=== PATIENT | male | born 1950 | race Caucasian/White ===

== ENCOUNTER 2017-07-13 07:42 | Day surgery (SDC) | payer MEDICARE, BC, OTHER ==
[2017-07-13] MEDS ORDERED: Lactated Ringers 1,000 ML IV SCH (08:00)
[2017-07-13] MEDS ORDERED: Sodium Chloride 0.9% 10 ML Syringe FLUSH PRN (08:00)
[2017-07-13] MEDS ORDERED: Propofol 200 MG/20 ML SDV ONE ×2 (09:06→09:15)
[2017-07-13] MEDS ORDERED: Midazolam 1 MG/ML 2 ML SDV ONE ×2 (09:06→09:15)
[2017-07-13] MEDS ORDERED: fentaNYL 100 MCG/2 ML SDV ONE ×2 (09:06→09:15)
--- NOTE | 2017-07-13 09:18 | PCM.PN ---
- General Info Date of Service: 07/13/17 - Review of Systems Systems Review Comment:: 67-year-old male referred for his initial colonoscopy. He was recently discovered to have a positive FIT-test. He denies any recent changes in his bowel pattern. He also denies any family history of colon cancer. He is medically stable to proceed today with no significant recent change in his health status. I have discussed the proposed colonoscopy with the patient. Risks such as but not limited to bleeding and GI injury reviewed. He appears to understand and agrees to proceed. - Patient Data Vitals - Most Recent: Last Vital Signs Temp 98.1 F 07/13/17 08:17 Pulse 83 07/13/17 08:17 Resp 17 07/13/17 08:17 BP 130/66 07/13/17 08:17 Pulse Ox 99 07/13/17 08:17 Weight - Most Recent: 77.292 kg Med Orders - Current: Current Medications Lactated Ringer's (Ringers, Lactated) 1,000 mls @ 125 mls/hr IV ASDIRECTED ANGELA Last Admin: 07/13/17 08:43 Dose: 125 mls/hr Sodium Chloride (Saline Flush) 10 ml FLUSH ASDIRECTED PRN PRN Reason: Keep Vein Open Discontinued Medications Fentanyl (Sublimaze) Confirm Administered Dose 100 mcg .ROUTE .STK-MED ONE Stop: 07/13/17 09:07 Midazolam HCl (Versed 1 Mg/Ml) Confirm Administered Dose 2 mg .ROUTE .STK-MED ONE Stop: 07/13/17 09:07 Propofol (Diprivan 20 Ml) Confirm Administered Dose 200 mg .ROUTE .STK-MED ONE Stop: 07/13/17 09:07 - Problem List Review Problem List Initiated/Reviewed/Updated: Yes - My Orders Last 24 Hours: My Active Orders 07/13/17 08:00 Patient Status [ADT] Routine Peripheral IV Care [RC] . DIRECTED Verify Patient Consent Obtain [RC] ASDIRECTED Lactated Ringers [Ringers, Lactated] 1,000 ml IV ASDIRECTED Sodium Chloride 0.9% [Saline Flush] 10 ml FLUSH ASDIRECTED PRN Peripheral IV Insertion Adult [OM.PC] Routine 07/13/17 09:06 Midazolam [Versed 1 MG/ML] 2 mg .ROUTE .STK-MED ONE - Assessment Assessment:: Hemoccult positive stools - Plan Plan:: Colonoscopy
--- NOTE | 2017-07-13 10:16 | PCM.OPNOTE ---
- General Post-Op/Procedure Note Date of Surgery/Procedure: 07/13/17 Operative Procedure(s): Colonoscopy with polypectomy and biopsy Findings: Firm Ulcerative Cecal mass Multiple colon polyps Pre Op Diagnosis: Guiac + stools Post-Op Diagnosis: Cecal Mass. Colon Polyps Anesthesia Technique: MAC Primary Surgeon: Malik Chiu Pathology: Biopsies of cecal mass Colon polyps Output, Urine Amount: 0 EBL in mLs: 4 Complications: None Condition: Good Free Text/Narrative:: Intake & Output 07/12/17 07/13/17 07/13/17 22:59 06:59 14:59 Intake Total 600 Balance 600
--- NOTE | 2017-07-13 14:25 | OR ---
Date of Procedure: 07/13/2017 PREOPERATIVE DIAGNOSIS: Guaiac-positive stools. POSTOPERATIVE DIAGNOSES: 1. Cecal mass. 2. Multiple colon polyps. OPERATION PERFORMED: Colonoscopy with polypectomy and biopsy. INDICATIONS FOR SURGERY: This 67-year-old male presents for his initial colonoscopy. He was recently noted to have guaiac-positive stools. FINDINGS: The patient has a large ulcerative firm mass in the cecum. The surface is hyperemic and friable, and it is grossly worrisome for a malignancy. Multiple polyps were noted during the exam as well. There is a 5 mm sessile polyp in the rectum, 10 cm from the anal verge. A 6 mm sessile polyp in the sigmoid colon, 15 cm from the anal verge. A pedunculated irregularly shaped 1 cm polyp in the sigmoid colon at the 18 cm level. There is a rounded 1.2 cm polyp in the sigmoid colon, 30 cm from the anal verge and a sessile polyp, 7 mm in size in the mid transverse colon. The remainder of the colon appears normal. PROCEDURE IN DETAIL: The patient was taken to the operating room. He was given intravenous sedation, and with him in the left lateral decubitus position, digital rectal exam was performed showing no rectal masses. The Olympus colonoscope was inserted into the rectum. Retroflexed examination of the rectal canal was performed. The scope was carefully advanced under direct visualization through the entire length of the colon until the cecum is reached. In the cecum, the cecal mass was identified. This did appear to be separate from the appendiceal orifice and the ileocecal valve and was worrisome for malignancy. Multiple biopsies of this mass were taken. The scope was then slowly withdrawn sequentially re-examining the colonic segments. During insertion and withdrawal of the scope, the above-described polyps were identified. These are removed in turn as they are visualized using cautery snare and retrieving the polyps into a polyp trap. All five of the above- described polyps are removed in this manner and retrieved. After the examination had been completed, there was no sign of any complication. The scope was removed, and the patient was taken from the operating room in satisfactory condition. ESTIMATED BLOOD LOSS: 4 mL. COMPLICATIONS: None. PROGNOSIS: Good. ANGEL Chiu MD /[id number]
== END 2017-07-13 11:40 | disposition home or self-care (01) ==
LOC: LL.SDS 07:42
PROVIDERS: ATTEND Surgery
DX: C18.0 Malignant neoplasm of cecum (principal); D12.3 Benign neoplasm of transverse colon; D12.5 Benign neoplasm of sigmoid colon; K62.1 Rectal polyp; Z79.899 Other long term (current) drug therapy
CPT/HCPCS: 00810; 45380; 45385; J2250; J2704; J3010; J7120; 88305; 88341; 88342

== ENCOUNTER 2019-02-18 15:39 | Emergency (ER) | payer MEDICARE, BC ==
[2019-02-18] MEDS ORDERED: Ticagrelor 90 MG Tab PO ONE (15:55)
[2019-02-18] MEDS ORDERED: Aspirin 81 MG Tab.Chew CHEW ONE (15:55)
[2019-02-18] MEDS ORDERED: Famotidine 20 MG/2 ML SDV IVPUSH ONE (15:55)
[2019-02-18] MEDS ORDERED: Sodium Chloride 0.9% 10 ML Syringe FLUSH PRN (15:55)
--- NOTE | 2019-02-18 15:55 | EDM.PDOC ---
ED HPI GENERAL MEDICAL PROBLEM - General Chief Complaint: Chest Pain Stated Complaint: chest pressure Time Seen by Provider: 02/18/19 15:55 Source of Information: Reports: Patient, Old Records ([facility] chart/EMR including records from both [place] in [place]), Other ([place] EMR) History Limitations: Reports: No Limitations - History of Present Illness INITIAL COMMENTS - FREE TEXT/NARRATIVE: The patient drove himself to the emergency room via private automobile for evaluation of a one month history of chronic constant 1-2/10 superior left chest pressure with initial brief evaluation by his regular provider, Remigio Corbett PA-C, at the [facility] in [place], who sent the patient to our emergency room for further treatment and evaluation. Note EKG was taken in that clinic, however no other medications, treatment, etc.. He has had extensive heart workup in the past as below with no previous history of NV, cardiac procedures, etc. The patient denies any other chest pain/radiation of discomfort , heart flutter, dizziness, orthostasis, orthopnea, diaphoresis, paresthesias, recent decreased exercise tolerance, or any other anginal-type symptoms. No recent history of abdominal pain, heartburn, nausea, diarrhea, melena, gross hematochezia, or any food intolerance, including fatty foods, etc., with normal bowel movement earlier today. Denies any gross hematuria, colic, or other UTI symptoms. The patient also denies any recent fever, cough, wheezing, dyspnea, etc.. No history of recent headaches, visual changes, diplopia, change in mental status, or other change in neurological status. Onset: Unknown/Unsure Duration: Week(s): (One month as above), Constant. No: Getting Worse, Intermittent Location: Reports: Chest. Denies: Head, Face, Neck, Abdomen, Back, Upper Extremity, Left, Upper Extremity, Right, Radiates to Quality: Reports: Pressure, Same as Previous Episode. Denies: Ache, Burning, Dull, Sharp, Stabbing, Throbbing Severity: Mild Improves with: Reports: None Worsens with: Reports: None Context: Reports: Other (As above). Denies: Sick Contact, Trauma Associated Symptoms: Denies: Confusion, Chest Pain, Cough, Diaphoresis, Fever/ Chills, Headaches, Loss of Appetite, Malaise, Nausea/Vomiting, Shortness of Breath, Syncope, Weakness Treatments ELECTROTHERAPIST: Reports: Other (see below) (None) Chest Pain Pain Score (Numeric/FACES): 2 - Related Data Allergies Allergy/AdvReac Type Severity Reaction Status Date / Time pollen extracts Allergy Other Verified 07/26/18 09:22 Home Meds: Home Meds Finasteride 5 mg PO DAILY 07/12/17 [History] Multivitamins,Therapeutic [Thera] 1 each PO DAILY 07/12/17 [History] Ferrous Sulfate 325 mg PO Q2D 07/25/18 [History] Cetirizine [ZyrTEC] 10 mg PO DAILY PRN 02/18/19 [History] Loratadine [Claritin] 10 mg PO DAILY PRN 02/18/19 [History] Omeprazole 20 mg PO ACBREAKFAST #30 cap.sr 02/18/19 [Rx] Past Medical History HEENT History: Reports: Allergic Rhinitis, Epistaxis, Impaired Vision, Sinusitis , Other (See Below). Denies: Cataract, Glaucoma, Hard of Hearing, Macular Degeneration, Otitis Media, Retinal Detachment Other HEENT History: Seasonal allergies. Patient does wear glasses and does have floaters. Recurrent epistaxis in childhood no longer problematic. Nasal septum deviation. Cardiovascular History: Reports: None, Cardiomyopathy, Other (See Below). Denies: Afib, Aneurysm, Arrhythmia, Blood Clots/VTE/DVT, CAD, Heart Failure, Heart Murmur, High Cholesterol, Hypertension, NV, PVD, Syncope Other Cardiovascular History: He does not know his cholesterol status.. Mild grade 1 diastolic dysfunction by echocardiogram since August 2017 as below with decreased ejection fraction of 4550 percent, however improved function to 54% by Cardiolite stress test in November 2017 as below. Benign diffuse valvular disease by echocardiogram with no murmurs. Respiratory History: Reports: Bronchitis, Recurrent, COPD, Intubation, Previous , Pneumonia, Recurrent, Other (See Below). Denies: Asthma, Intubation, Difficult, PE, Pneumothorax, Sleep Apnea Other Respiratory History: Possible Pulmonary metastasis from colon cancer as below with 3 mm left lower lobe nodule by CT scan on 12/08/17, however no change with subsequent follow-up CT scan in October 2018 as below with scattered tiny punctate pulmonary nodules and no radiation or chemotherapy to this point. COPD with no current medical therapy or treatment. Gastrointestinal History: Reports: Colon Polyp, GERD, Other (See Below). Denies : Celiac Disease, Cholelithiasis, Chronic Constipation, Chronic Diarrhea, Gastritis, GI Bleed, Hepatitis, Inflammatory Bowel Disease, Irritable Bowel Syndrome, Jaundice, Pancreatitis, PUD Other Gastrointestinal History: History of multiple colonic polyps including cecal invasive moderately differentiated adenocarcinoma in 2017 requiring surgery as below with additional multiple sigmoid and rectal polyps including hyperplastic colonic polyps, serrated adenocarcinoma, and tubular adenomas with additional tubular adenoma of the transverse colon and subsequent hyperplastic colonic polyp in the transverse colon in 2018. Benign hepatic cysts and [address] scan. Genitourinary History: Reports: BPH, STD, Other (See Below). 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 Benign left renal cyst by CT scan in 2017. Musculoskeletal History: Reports: Arthritis, Back Pain, Chronic, Neck Pain, Chronic, Osteoarthritis. Denies: Amputation, Fracture, Gout, RA, SLE Neurological History: Reports: None. Denies: Cerebral Aneurysms, Concussion, CVA, Headaches, Chronic, Head Trauma, Migraines, MS, Neuropathy, Peripheral, Parkinson's, Seizure, TIA Psychiatric History: Reports: Addiction, Anxiety, Depression, Suicidal Ideation , Other (See Below). Denies: Abuse, Victim of, ADD, ADHD, Alzheimers Disease, Dementia, Hallucinations, Psych Hospitalization(s), PTSD, Suicide Attempt Other Psychiatric History: Alcohol addiction in the 1970s and 1980s with no use since 02/18/91 with no inpatient treatment required. He did have DTs with his alcohol abuse. Endocrine/Metabolic History: Reports: None, Vitamin D Deficiency. Denies: Diabetes, Type I, Diabetes, Type II, Hypothyroidism, IDDM Hematologic History: Reports: Anemia, Iron Deficiency. Denies: B12 Deficiency, Blood Transfusion(s) Immunologic History: Reports: None. Denies: AIDS, HIV, SLE Oncologic (Cancer) History: Reports: Colon, Lung, Metastatic, Other (See Below) . Denies: Basal Cell Carcinoma, Hodgkin's Lymphoma, Leukemia, Liver, Lymphoma, Malignant Melanoma, Non-Hodgkin's Lymphoma, Prostate, Squamous Cell Carcinoma Other Oncologic History: Pulmonary metastases from colon cancer in 2017 as above Dermatologic History: Reports: None. Denies: Eczema, Psoriasis - Infectious Disease History Infectious Disease History: Reports: Chicken Pox, Measles, Mumps. Denies: C- Difficile, Meningitis, Mononucleosis, MRSA, Pertussis (Whooping Cough), Rheumatic Fever, Rubella, Scarlet Fever, Shingles, TB, VRE - Past Surgical History Head Surgeries/Procedures: Reports: None HEENT Surgical History: Reports: Adenoidectomy, Oral Surgery, Tonsillectomy, Other (See Below). Denies: Cataract Surgery, Eye Surgery, Laser Surgery, LASIK , Myringotomy w Tube(s), Naso-Sinus Surgery Other HEENT Surgeries/Procedures: Multiple dental extractions. Tonsillectomy and adenoidectomy in childhood. Cardiovascular Surgical History: Reports: None. Denies: Varicose Respiratory Surgical History: Reports: None. Denies: Thoracentesis GI Surgical History: Reports: Appendectomy, Colon, Colonoscopy, Colostomy, Polypectomy, Other (See Below). Denies: Cholecystectomy, Hernia, Abdominal, Hernia, Inguinal, Hernia Repair/Other Other GI Surgeries/Procedures: Right Hemicolectomy with concomitant appendectomy on 08/15/17 secondary to cecal colon cancer as above. Colonoscopy on 07/13/17 and 07/26/18 with polypectomies as above. Male Surgical History: Reports: Circumcision, Other (See Below). Denies: TURP-Transurethral Resection of Prostate, Vasectomy Other Male Surgeries/Procedures: Circumcision as an infant. Endocrine Surgical History: Reports: None. Denies: Thyroid Biopsy Neurological Surgical History: Reports: None. Denies: C-Spine, Discectomy, Laminectomy, Lumbar Spine, Sacral Spine, Spinal Fusion, Thoracic Spine, Vertebroplasty Musculoskeletal Surgical History: Reports: None. Denies: Arthroscopic Procedure , Carpal Tunnel, Ganglion Cyst, Joint Replacement, ORIF, Shoulder Surgery Oncologic Surgical History: Reports: Other (See Below) Other Oncologic Surgeries/Procedures: Right hemicolectomy as above. Dermatological Surgical History: Reports: Other (See Below) Other Dermatological Surgeries/Procedures: Excision of benign cyst from his left back region the . - Past Imaging History Past Imaging History: Reports: Cardiac Echo (09/04/17 and 10/04/18 with findings as above.), CAT Scan (CT scan of the chest, abdomen, and pelvis with IV contrast on 10/24/18 CT scan of the abdomen and pelvis on 08/02/17. CT of the chest contrast on 12/08/17.), PFT (12/07/17 including diffusion studies), Stress Testing (Negative Cardiolite stress test on 12/04/17 with ejection fraction of 54 %.) Social & Family History - Family History HEENT: Reports: None. Denies: Glaucoma, Macular Degeneration, Retinal Detachment Cardiac: Reports: Syncope, Other (See Below). Denies: Afib, Aneurysm, Arrhythmia, Blood Clots/VTE/DVT, CAD, Heart Failure, Heart Murmur, High Cholesterol, Hypertension, NV, Pacemaker, PVD/COD Other Cardiac Family History: Brother with recurrent syncope secondary to previous head concussion. Brother with congenital intestinal malformation fatal in the first week of life. Respiratory: Reports: Asthma. Denies: COPD, PE, Pneumothorax, Sleep Apnea, Other (See Below) Other Respiratory Family Hisory: Brother with asthma. GI: Reports: Cholelithiasis, Other (See Below). Denies: Celiac Disease, Colon Polyps, GERD, GI bleed, Hepatitis, Irritable Bowel Syndrome, Pancreatitis, PUD Other GI Family History: Mother with cholelithiasis. : Reports: Renal Disease/Insufficiency, Other (See Below). Denies: Renal Calculus Other Family History: Brother with unknown type of kidney problems. OBGYN: Reports: None. Denies: Endometriosis, Recurrent Spontaneous Musculoskeletal: Reports: Arthritis, Osteoarthritis, Other (See Below). Denies : Gout, RA, SLE Other Musculoskeletal Family History: Sister with osteoarthritis. Neurological: Reports: CVA, MS, Other (See Below). Denies: Alzheimers Disease, Cerebral Aneurysms, Dementia, Migraines, Parkinson's, Seizure, TIA Other Neurological Family History: Mother with unknown type cerebral mass with secondary CVA and Alzheimer's disease. Sister with MS initially in her 20s. Psychiatric: Reports: Anxiety, Depression, Suicide Attempt, Other (See Below). Denies: Abuse, Victim of, ADD, ADHD Other Psychiatric Family History: Father with successful suicide at age 49 with history of alcohol abuse. Brothers 2 with alcohol abuse. Endocrine/Metabolic: Reports: None. Denies: Diabetes, Type I, Diabetes, type II , Diabetes Mellitus, Type 3c, Hypothyroidism, IDDM Hematologic: Reports: None. Denies: Anemia, SLE Immunologic: Reports: None. Denies: AIDS, HIV, SLE Dermatologic: Reports: None. Denies: Eczema, Psoriasis Oncologic: Reports: None. Denies: Colon, Hodgkin's Lymphoma, Leukemia, Lung, Lymphoma, Metastatic, Non-Hodgkin's Lymphoma, Prostate, Skin - Tobacco Use Smoking Status *Q: Former Smoker Tobacco Use Within Last Twelve Months: No Packs/Tins Daily Comment: Occasional cigarette used in the and during time of alcohol abuse. Used Tobacco, but Quit: No Smoking Cessation Information Provided To Patient: No Second Hand Smoke Exposure: No Second Hand Smoke Education Provided: No - Caffeine Use Caffeine Use: Reports: Coffee (1 Cup per day). Denies: Energy Drinks, Soda, Tea - Alcohol Use Alcohol Use History: Yes Days Per Week of Alcohol Use: 0 Number of Drinks Per Day: 0 Number of Drinks Per Day Comment: Alcohol abuse history as above. Total Drinks Per Week: 0 Alcohol Use in Last Twelve Months: No - Recreational Drug Use Recreational Drug Use: Yes Drug Use in Last 12 Months: No Recreational Drug Type: Reports: LSD (Acid) (In the and .), Marijuana /Hashish ( and ). Denies: Amphetamines (Speed), Heroin, Inhalants ( Glues, Solvents, Aerosols), Methamphetamine, Morphine, Oxycodone - Living Situation & Occupation Living situation: Reports: (1994, no children), with Family () Occupation: Employed ([employer] in [facility]) ED ROS GENERAL - Review of Systems Review Of Systems: ROS reveals no pertinent complaints other than HPI. ED EXAM, GENERAL - Physical Exam Exam: See Below Exam Limited By: No Limitations General Appearance: Alert, WD/WN, No Apparent Distress, Anxious (Mild to moderate) Eye Exam: Right Eye: PERRL, Bilateral Eye: Normal Inspection (No nystagmus, patient does have his glasses.) Ears: Normal External Exam, Normal Canal, Hearing Grossly Normal, Normal TMs Nose: Normal Mucosa, No Blood, Nasal Deformity (Moderate nasal septum deviation to the right) Throat/Mouth: Normal Inspection, Normal Lips, Normal Teeth, Normal Gums, Normal Oropharynx, Normal Voice, No Airway Compromise. No: Dysphagia, Perioral Cyanosis Head: Atraumatic, Normocephalic. No: Facial Swelling, Facial Tenderness, Sinus Tenderness Neck: Normal Inspection, Supple, Non-Tender, Full Range of Motion. No: Carotid Bruit, Lymphadenopathy (L), Lymphadenopathy (R), Thyromegaly Respiratory/Chest: No Respiratory Distress, Lungs Clear, Normal Breath Sounds, No Accessory Muscle Use, Chest Non-Tender. No: Pleural Rub, Retractions Cardiovascular: Normal Peripheral Pulses, Regular Rate, Rhythm, No Edema, No Gallop, No JVD, No Murmur, No Rub. No: Systolic Murmur, Gallop/S4, Friction Rub Peripheral Pulses: 2+: Radial (L), Radial (R), Dorsalis Pedis (L), Dorsalis Pedis (R) GI/Abdominal: Normal Bowel Sounds, Soft, Non-Tender, No Organomegaly, No Distention, No Abnormal Bruit, No Mass. No: Guarding (Male) Exam: Deferred Rectal (Males) Exam: Deferred Back Exam: Normal Inspection. No: CVA Tenderness (L), CVA Tenderness (R), Muscle Spasm Extremities: Normal Inspection, Normal Range of Motion, Non-Tender, No Pedal Edema, Normal Capillary Refill. No: Boyd's Sign Neurological: Alert, Oriented, CN II-XII Intact, Normal Cognition, Normal Gait, Normal Reflexes (Negative Babinski's), No Motor/Sensory Deficits Psychiatric: Anxious (Mild to moderate), Depressed Mood (Borderline with good eye contact) Skin Exam: Warm, Dry, Intact, Normal Color, No Rash. No: Diaphoretic, Wound/ Incision Lymphatic: No Adenopathy EKG INTERPRETATION EKG Date: 02/18/19 Time: 16:02 Rhythm: NSR Rate (Beats/Min): 61 [place]: LAD-Left [place] Deviation (Extended left cardiac axis) P-Wave: Enlarged (Moderate diffuse biphasic P waves with poor R-wave progression in the anterior leads) QRS: Wide (0.13 seconds representing repolarization changes) ST-T: Normal QT: Normal GA/PQ Interval: 0.16 seconds Comparison: No Change (Previous EKG at the [facility] in [place] earlier this afternoon.) EKG Interpretation Comments: 1. No acute ischemic changes 2. Atrial enlargement-left 3. Repolarization changes Course - Vital Signs Last Recorded V/S: Last Vital Signs Temp 36.0 C 02/18/19 16:00 Pulse 63 02/18/19 16:44 Resp 20 02/18/19 16:44 BP 132/82 02/18/19 16:44 Pulse Ox 98 02/18/19 16:44 Vital Signs - 24 hr 02/18/19 02/18/19 02/18/19 15:52 15:55 16:00 Temperature [ 36.4 C 36.0 C Temporal] Pulse, 64 61 Peripheral [ Left Pulse Oximetry] Respiratory 20 20 Rate Blood Pressure 122/69 125/73 [Left Upper Arm ] O2 Sat by Pulse 98 98 Oximetry O2 Sat by Pulse 98 Oximetry [Room Air] 02/18/19 02/18/19 02/18/19 16:20 16:44 17:16 Temperature [ Temporal] Pulse, 64 63 59 L Peripheral [ Left Pulse Oximetry] Respiratory 20 20 18 Rate Blood Pressure 127/62 132/82 136/68 [Left Upper Arm ] O2 Sat by Pulse 98 98 98 Oximetry O2 Sat by Pulse Oximetry [Room Air] - Orders/Labs/Meds Orders: Active Orders 24 hr Category Date Time Status Cardiac Monitoring [RC] . DIRECTED Care 02/18/19 15:55 Active EKG Documentation Completion [RC] ASDIRECTED Care 02/18/19 15:55 Active Oxygen Therapy, ED [RC] PRN Care 02/18/19 15:55 Active Peripheral IV Care [RC] . DIRECTED Care 02/18/19 15:55 Active Pulse Oximetry [RC] CONTINUOUS Care 02/18/19 15:55 Active Up With Assistance [RC] PFP Care 02/18/19 15:55 Active Vital Signs [RC] PFP Care 02/18/19 15:55 Active Nothing per Oral Now Diet [DIET] Diet 02/18/19 Breakfast Active Chest 1V Frontal [CR] Stat Exams 02/18/19 15:55 Ordered Sodium Chloride 0.9% [Saline Flush] Med 02/18/19 15:55 Active 10 ml FLUSH ASDIRECTED PRN Obtain Past Medical Record [OM.PC] Urgent Oth 02/18/19 15:55 Active Peripheral IV Insertion Adult [OM.PC] Stat Oth 02/18/19 15:55 Ordered Resuscitation Status Stat Resus Stat 02/18/19 15:55 Ordered Medication Orders Sodium Chloride (Saline Flush) 10 ml FLUSH ASDIRECTED PRN PRN Reason: Keep Vein Open Labs: Laboratory Tests 02/18/19 02/18/1902/18/19 Range/Units 16:00 16:00 16:00 WBC 6.7 (4.0-10.2) K/uL RBC 4.20 L (4.33-5.41) M/uL Hgb 15.1 (13.1-16.8) g/dL Hct 41.9 (39.0-49.0) % MCV 99.8 H (84.0-98.0) fL MCH 36.0 H (28.2-33.3) pg MCHC 36.0 (31.7-36.0) g/dL RDW 12.5 (11.2-14.1) % Plt Count 179 (150-350) K/uL Neut % (Auto) 56.0 (45.0-80.0) % Lymph % (Auto) 32.6 (10.0-50.0) % [place] % (Auto) 8.6 (2.0-14.0) % Eos % (Auto) 2.3 (0.0-5.0) % Baso % (Auto) 0.5 (0.0-2.0) % Neut # (Auto) 3.73 (1.40-7.00) K/uL Lymph # (Auto) 2.17 (0.50-3.50) K/uL [place] # (Auto) 0.57 (0.00-1.00) K/uL Eos # (Auto) 0.15 (0.00-0.50) K/uL Baso # (Auto) 0.03 (0.00-0.20) K/uL PT 10.7 (9.5-12.0) SEC INR 1.0 APTT 28.2 (21.0-31.3) SEC D-Dimer, Quantitative < 100 (0-400) ng/mL Sodium (136-145) mmol/L Potassium (3.5-5.1) mmol/L Chloride (98-107) mmol/L Carbon Dioxide (21.0-32.0) mmol/L BUN (7-18) mg/dL Creatinine (0.51-1.17) mg/dL Est Cr Clr Drug Dosing mL/min Estimated GFR (MDRD) mL/min Glucose (74-106) mg/dL Lactic Acid (0.4-2.0) mmol/L Uric Acid (2.6-7.2) mg/dL Calcium (8.5-10.1) mg/dL Magnesium (1.8-2.4) mg/dL Total Bilirubin (0.2-1.0) mg/dL AST (15-37) U/L ALT (12-78) U/L Alkaline Phosphatase (46-116) IU/L Creatine Kinase (26-308) U/L Creatine Kinase Index (0.0-2.5) % CK-MB (CK-2) (0.00-3.60) ng/mL Troponin I (0.000-0.056) ng/mL NT-Pro-B Natriuret Pep (0-125) pg/mL Total Protein (6.4-8.2) g/dL Albumin (3.4-5.0) g/dL TSH, Ultra Sensitive (0.358-3.740) mIU/mL 02/18/19 02/18/19 Range/Units 16:00 16:00 WBC (4.0-10.2) K/uL RBC (4.33-5.41) M/uL Hgb (13.1-16.8) g/dL Hct (39.0-49.0) % MCV (84.0-98.0) fL MCH (28.2-33.3) pg MCHC (31.7-36.0) g/dL RDW (11.2-14.1) % Plt Count (150-350) K/uL Neut % (Auto) (45.0-80.0) % Lymph % (Auto) (10.0-50.0) % [place] % (Auto) (2.0-14.0) % Eos % (Auto) (0.0-5.0) % Baso % (Auto) (0.0-2.0) % Neut # (Auto) (1.40-7.00) K/uL Lymph # (Auto) (0.50-3.50) K/uL [place] # (Auto) (0.00-1.00) K/uL Eos # (Auto) (0.00-0.50) K/uL Baso # (Auto) (0.00-0.20) K/uL PT (9.5-12.0) SEC INR APTT (21.0-31.3) SEC D-Dimer, Quantitative (0-400) ng/mL Sodium 141 (136-145) mmol/L Potassium 3.8 (3.5-5.1) mmol/L Chloride 104 (98-107) mmol/L Carbon Dioxide 28.3 (21.0-32.0) mmol/L BUN 15 (7-18) mg/dL Creatinine 0.75 (0.51-1.17) mg/dL Est Cr Clr Drug Dosing 101.79 mL/min Estimated GFR (MDRD) > 60 mL/min Glucose 103 (74-106) mg/dL Lactic Acid 0.5 (0.4-2.0) mmol/L Uric Acid 3.9 (2.6-7.2) mg/dL Calcium 8.7 (8.5-10.1) mg/dL Magnesium 1.8 (1.8-2.4) mg/dL Total Bilirubin 0.6 (0.2-1.0) mg/dL AST 18 (15-37) U/L ALT 28 (12-78) U/L Alkaline Phosphatase 63 (46-116) IU/L Creatine Kinase 55 (26-308) U/L Creatine Kinase Index 1.6 (0.0-2.5) % CK-MB (CK-2) 0.90 (0.00-3.60) ng/mL Troponin I 0.000 (0.000-0.056) ng/mL NT-Pro-B Natriuret Pep 45 (0-125) pg/mL Total Protein 7.1 (6.4-8.2) g/dL Albumin 3.5 (3.4-5.0) g/dL TSH, Ultra Sensitive 3.753 H (0.358-3.740) mIU/mL Meds: Medications Generic Name Dose Route Start Last Admin Trade Name Freq PRN Reason Stop Dose Admin Sodium Chloride 10 ml 02/18/19 15:55 Saline Flush FLUSH ASDIRECTED PRN Keep Vein Open Discontinued Medications Generic Name Dose Route Start Last Admin Trade Name Freq PRN Reason Stop Dose Admin Aspirin 324 mg 02/18/19 15:55 02/18/19 16:08 Aspirin CHEW 02/18/19 15:56 324 mg ONETIME ONE Administration Famotidine 40 mg 07/15/19 15:55 02/18/19 16:07 Pepcid IVPUSH 02/18/19 15:56 40 mg ONETIME ONE Administration Ticagrelor 180 mg 02/18/19 15:55 02/18/19 16:09 Brilinta PO 02/18/19 15:56 180 mg ONETIME ONE Administration - Radiology Interpretation Free Text/Narrative:: Heart monitor showed normal sinus rhythm in the 60s with very occasional brief sinus bradycardia in the high 50s with no other ectopy or arrhythmia. Chest X-ray, portable, shows moderate COPD changes with no cardiomegaly, CHF, pulmonary infiltrates, pneumothorax, etc. Departure - Departure Time of Disposition: 17:40 Disposition: Home, Self-Care 01 Clinical Impression: Peptic reflux disease, Macrocytosis, Mixed anxiety depressive disorder, Hypothyroidism (acquired) Chest pain Qualifiers: Chest pain type: other chest pain Qualified Code(s): R07.89 - Other chest pain ; R07.8 - Other chest pain Osteoarthritis Qualifiers: Osteoarthritis location: multiple joints Osteoarthritis type: primary Qualified Code(s): M15.0 - Primary generalized (osteo)arthritis Prescriptions: Omeprazole 20 mg PO ACBREAKFAST #30 cap.sr Instructions: Heartburn, [id number], Nonspecific Chest Pain, [id number] Referrals: Remigio Corbett PA [Primary Care Provider] - Forms: ED Department Discharge, ED Return to Work/School Form Additional Instructions: 1. Followup with your regular provider in 10-14 days as directed for reevaluation and recommended vitamin B 12 level, folic acid level, TIBC panel, and ferritin level. Bring these discharge instructions with you to that visit. 2. Cardiolite stress test in this facility with Dr. Ackerman on 02/21 with a hospital call you with exact time and instructions prior to that date 3. 50% maximum exercise restriction until your heart status has been determined and you have been released by your regular provider 4. Work excuse- See Form 5. BenGay or equivalent, heating pad, and/or ice packs as directed. 6. Immediately after this visit verify that your cellular telephone's voicemail has been activated and is empty. Also verify that your home telephone 's answering machine is operating properly and has space to receive messages. Note that it is sometimes necessary for us to be able to contact you at a later date to discuss your medical care. 7. Please remember that we are ALWAYS here for you and want to answer any questions you may have. Feel free to call the hospital any time and we call you back KATIE. 8. Recommend repeating TSH in 4 weeks 9. Discuss Cardiolite stress test results with your regular provider at 10-14 day follow-up visit as above. - Problem List & Annotations (1) Chest pain SNOMED Code(s): 20378006 Code(s): R07.9 - CHEST PAIN, UNSPECIFIED Status: Acute Priority: High Current Visit: Yes Annotation/Comment:: Chest pain protocol initiated upon patient's arrival to the emergency room. Note symptoms have been present for more than one month with no change in symptoms to this point. No indication for placement in observation status for rule out NV, however patient was placed on activity restrictions until his cardiac status can be determined. Work excuse provided with activity restrictions discussed. Various therapeutic options were discussed with his Cardiolite stress test to be repeated with Dr. Ackerman in this facility on 02/21 with results to be provided to his regular provider, Remigio Corbett PA-C, at the [facility], who will follow-up closely with the patient as per discharge instructions. Further cardiology referral and/or workup depending on his clinical course. Note that patient did have a negative Cardiolite stress test on 12/04/17 with recent repeat echocardiogram on 10/04/18 with results as above. Consider possible anxiety component and/or GI etiology as below. Qualifiers: Chest pain type: other chest pain Qualified Code(s): R07.89 - Other chest pain; R07.8 - Other chest pain (2) Peptic reflux disease SNOMED Code(s): 949064154 Code(s): K21.9 - GASTRO-ESOPHAGEAL REFLUX DISEASE WITHOUT ESOPHAGITIS Status: Chronic Priority: Medium Current Visit: Yes Annotation/Comment:: Stable by history, however possible GI component to his above symptoms. Initiate OTC omeprazole on a trial basis with close follow-up by his regular provider as per discharge instructions. He may benefit from an EGD once his cardiac status has been determined depending on his clinical course. Note history of colon cancer as above with recent repeat colonoscopy on 07/26/18 with repeat study recommended in 3 years by patient history. (3) Mixed anxiety depressive disorder SNOMED Code(s): 961122482 Code(s): F41.8 - OTHER SPECIFIED ANXIETY DISORDERS Status: Chronic Priority: Medium Current Visit: Yes Annotation/Comment:: He admits to increased current stressors secondary to financial issues, etc. Possible anxiety component of patient's symptoms to current chest pain. Patient may benefit from medical therapy and/or counseling depending on his clinical course. Note distant history of alcohol abuse, suicidal ideation, and positive family history of successful suicide in his father as above. Patient denies any current suicidal ideation, etc. at this time, however. (4) Hypothyroidism (acquired) SNOMED Code(s): 559863034 Code(s): E03.9 - HYPOTHYROIDISM, UNSPECIFIED Status: Acute Priority: Medium Current Visit: Yes Onset Date: 02/18/19 Annotation/Comment:: Mild TSH elevation with no thyroid type symptoms. No medications for now, however TSH should be repeated in 4 weeks as per discharge instructions. (5) Macrocytosis SNOMED Code(s): 972410268 Code(s): D75.89 - OTHER SPECIFIED DISEASES OF BLOOD AND BLOOD-FORMING ORGANS Status: Acute Priority: Medium Current Visit: Yes Onset Date: 02/18/19 Annotation/Comment:: Note previous history of iron deficiency anemia, however the patient has been somewhat noncompliant with his iron supplementation. Medication compliance strongly encouraged. Note previous history of distant alcohol abuse. Further workup for his macrocytosis at follow- up as per discharge instructions. (6) Osteoarthritis SNOMED Code(s): 425482642 Code(s): M19.90 - UNSPECIFIED OSTEOARTHRITIS, UNSPECIFIED SITE Status: Chronic Priority: Medium Current Visit: Yes Annotation/Comment:: Stable by history Qualifiers: Osteoarthritis location: multiple joints Osteoarthritis type: primary Qualified Code(s): M15.0 - Primary generalized (osteo)arthritis - Problem List Review Problem List Initiated/Reviewed/Updated: Yes - My Orders Last 24 Hours: My Active Orders 02/18/19 15:55 Cardiac Monitoring [RC] . DIRECTED EKG Documentation Completion [RC] ASDIRECTED Oxygen Therapy, ED [RC] PRN Peripheral IV Care [RC] . DIRECTED Pulse Oximetry [RC] CONTINUOUS Up With Assistance [RC] PFP Vital Signs [RC] PFP Chest 1V Frontal [CR] Stat Sodium Chloride 0.9% [Saline Flush] 10 ml FLUSH ASDIRECTED PRN Obtain Past Medical Record [OM.PC] Urgent Peripheral IV Insertion Adult [OM.PC] Stat Resuscitation Status Stat 02/18/19 Breakfast Nothing per Oral Now Diet [DIET] - Assessment/Plan Last 24 Hours: My Active Orders 02/18/19 15:55 Cardiac Monitoring [RC] . DIRECTED EKG Documentation Completion [RC] ASDIRECTED Oxygen Therapy, ED [RC] PRN Peripheral IV Care [RC] . DIRECTED Pulse Oximetry [RC] CONTINUOUS Up With Assistance [RC] PFP Vital Signs [RC] PFP Chest 1V Frontal [CR] Stat Sodium Chloride 0.9% [Saline Flush] 10 ml FLUSH ASDIRECTED PRN Obtain Past Medical Record [OM.PC] Urgent Peripheral IV Insertion Adult [OM.PC] Stat Resuscitation Status Stat 02/18/19 Breakfast Nothing per Oral Now Diet [DIET] Assessment:: As above Plan: As above. Extensive precautions were given to the patient, who is in agreement with the treatment plan. See Patient Instructions for further treatment and plan.
[2019-02-18 16:30] LABS: CHLORIDE,CL 104 mmol/L (98-107); SODIUM,NA 141 mmol/L (136-145)
== END 2019-02-18 17:40 | disposition home or self-care (01) ==
LOC: LL.ED 15:39
DX: R07.89 Other chest pain (principal); K21.9 Gastro-esophageal reflux disease without esophagitis; F41.8 Other specified anxiety disorders; E03.9 Hypothyroidism, unspecified; D75.89 Other specified diseases of blood and blood-forming organs; Z87.891 Personal history of nicotine dependence; Z79.899 Other long term (current) drug therapy; Z91.09 Other allergy status, other than to drugs and biological substances
CPT/HCPCS: 36415; 71045; 80053; 82550; 82553; 83605; 83735; 83880; 84443; 84484; 84550; 85025; 85379; 85610; 85730; 93005; 96374; 99285; A9270; J3490; 93010; 99284

== ENCOUNTER 2021-07-08 10:37 | Day surgery (SDC) | payer MEDICARE, BC ==
[~2021-07-08 10:37] MED LIST: Midazolam 1 MG/ML 2 ML SDV ONE; Propofol 200 MG/20 ML SDV ONE
[2021-07-08] MEDS ORDERED: Lactated Ringers 1,000 ML IV SCH (10:45)
[2021-07-08] MEDS ORDERED: Sodium Chloride 0.9% 10 ML Syringe FLUSH PRN (10:45)
--- NOTE | 2021-07-08 11:52 | PCM.PN ---
- General Info Date of Service: 07/08/21 - Review of Systems Systems Review Comment:: 71-year-old male here for colonoscopy. He has a history of prior right hemicolectomy for carcinoma and also has a known history of colon polyps. He is medically stable to proceed today. His recent history and physical is reviewed and no significant changes are noted. He denies any recent change in bowel pattern. I have discussed the proposed colonoscopy with the patient. He agrees to proceed accepting risks. - Patient Data Vitals - Most Recent: Last Vital Signs Temp 97.6 F 07/08/21 11:00 Pulse 91 07/08/21 11:00 Resp 18 07/08/21 11:00 BP 136/96 H 07/08/21 11:00 Pulse Ox 97 07/08/21 11:00 Weight - Most Recent: 80.739 kg Med Orders - Current: Current Medications Lactated Ringer's (Ringers, Lactated) 1,000 mls @ 125 mls/hr IV ASDIRECTED ANGELA Last Admin: 07/08/21 11:17 Dose: 125 mls/hr Documented by: Sodium Chloride (Sodium Chloride 0.9% 10 Ml Syringe) 10 ml FLUSH ASDIRECTED PRN PRN Reason: Keep Vein Open Discontinued Medications Midazolam HCl (Midazolam 1 Mg/Ml 2 Ml Sdv) Confirm Administered Dose 2 mg .ROUTE .STK-MED ONE Stop: 07/08/21 08:33 Propofol (Propofol 200 Mg/20 Ml Sdv) Confirm Administered Dose 400 mg .ROUTE .STK-MED ONE Stop: 07/08/21 08:34 Sepsis Event Note - Focused Exam Vital Signs: Vital Signs Temp Pulse Resp BP Pulse Ox 07/08/21 11:00 97.6 F 91 18 136/96 H 97 - Problem List Review Problem List Initiated/Reviewed/Updated: Yes - My Orders Last 24 Hours: My Active Orders 07/08/21 10:45 Patient Status [ADT] Routine Peripheral IV Care [RC] . DIRECTED Verify Patient Consent Obtain [RC] ASDIRECTED Lactated Ringers [Ringers, Lactated] 1,000 ml IV ASDIRECTED Sodium Chloride 0.9% [Saline Flush] 10 ml FLUSH ASDIRECTED PRN Peripheral IV Insertion Adult [OM.PC] Routine - Assessment Assessment:: History of colon cancer and colon polyps - Plan Plan:: Colonoscopy
[2021-07-08] MEDS ORDERED: Midazolam 1 MG/ML 2 ML SDV ONE (11:55)
[2021-07-08] MEDS ORDERED: Propofol 200 MG/20 ML SDV ONE (11:55)
--- NOTE | 2021-07-08 12:32 | PCM.OPNOTE ---
- General Post-Op/Procedure Note Date of Surgery/Procedure: 07/08/21 Operative Procedure(s): Colonoscopy with polypectomy Findings: Small sessile polyp at the level of the anastomosis Otherwise normal appearing colon and anastomosis Pre Op Diagnosis: History of colon cancer and colon polyps Post-Op Diagnosis: Colon polyp Anesthesia Technique: MAC Primary Surgeon: Malik Chiu Pathology: Anastomotic polyp EBL in mLs: 1 Complications: None Condition: Good
--- NOTE | 2021-07-08 14:42 | OR ---
Date of Procedure: 07/08/2021 PREOPERATIVE DIAGNOSIS: History of colon cancer. POSTOPERATIVE DIAGNOSIS: Colon polyp. OPERATIONS PERFORMED: Colonoscopy with polypectomy. INDICATIONS FOR SURGERY: This 71-year-old male has a known history of colon cancer, having had a right hemicolectomy about 4 years ago. He also has a history of colon polyps. FINDINGS: The patient has a single small polyp noted at the level of the anastomosis. This was 5 mm in diameter and sessile in configuration. His ileocolonic anastomosis at the proximal transverse colon level is otherwise clear, appears widely patent, and the visualized small bowel also appears normal. The remainder of the colon appears normal. DESCRIPTION OF PROCEDURE: The patient was taken to the operating room. He was given intravenous sedation, and with him in the left lateral decubitus position, digital rectal exam was performed showing no rectal masses. The Olympus colonoscope was inserted into the rectum. Retroflexed examination of the rectal canal was performed. The scope was then carefully advanced under direct visualization through the entire length of the remaining colon until the ileocolonic anastomosis was noted in the proximal transverse colon area. The anastomosis was inspected, found to appear normal and widely patent. Small bowel visualized, it also appeared normal. Near the anastomosis, the above- described small polyp was identified, this was removed completely with cold biopsy forceps. The scope was then slowly withdrawn sequentially re-examining the colonic segments until the entire colon and rectum were clearly visualized. With no sign of any complication, the scope was removed, and the patient was taken from the operating room in satisfactory condition. ESTIMATED BLOOD LOSS: 1 mL. COMPLICATIONS: None. PROGNOSIS: Good. ANGEL Chiu MD /[id number]
== END 2021-07-08 13:30 | disposition home or self-care (01) ==
LOC: LL.SDS 10:37
PROVIDERS: ATTEND Surgery
DX: Z12.11 Encounter for screening for malignant neoplasm of colon (principal); D12.6 Benign neoplasm of colon, unspecified; Z85.038 Personal history of other malignant neoplasm of large intestine; Z90.49 Acquired absence of other specified parts of digestive tract; Z98.0 Intestinal bypass and anastomosis status; Z98.890 Other specified postprocedural states; Z79.899 Other long term (current) drug therapy; Z91.048 Other nonmedicinal substance allergy status
CPT/HCPCS: 00812; J2250; J2704; J7120

== ENCOUNTER 2023-05-25 07:02 | Day surgery (SDC) | payer MEDICARE ==
[~2023-05-25 07:02] MED LIST changes: +Lactated Ringers 1,000 ML IV SCH; -Midazolam 1 MG/ML 2 ML SDV ONE; -Propofol 200 MG/20 ML SDV ONE; +Sodium Chloride 0.9% 10 ML Syringe FLUSH PRN
[2023-05-25] MEDS ORDERED: Midazolam 1 MG/ML 2 ML SDV ONE (07:07)
[2023-05-25] MEDS ORDERED: fentaNYL 100 MCG/2 ML SDV ONE (07:07)
[2023-05-25] MEDS ORDERED: Propofol 200 MG/20 ML SDV ONE (07:08)
[2023-05-25] MEDS ORDERED: Ketorolac 30 MG/ML SDV ONE (07:29)
[2023-05-25] MEDS ORDERED: ceFAZolin 1 GM Vial ONE ×2 (07:30→08:40)
[2023-05-25] MEDS ORDERED: Dexamethasone 10 MG/ML SDV IVPUSH ONE (08:02)
[2023-05-25] MEDS ORDERED: Glycopyrrolate 0.2 MG/ML SDV IVPUSH ONE (08:02)
[2023-05-25] MEDS ORDERED: Ondansetron 4 MG/2 ML SDV IVPUSH ONE (08:02)
[2023-05-25] MEDS ORDERED: Rocuronium 100 MG/10 ML MDV IVPUSH ONE (08:02)
[2023-05-25] MEDS ORDERED: Neostigmine Methylsulfate 10 MG/10 ML MDV IVPUSH ONE (08:02)
[2023-05-25] MEDS ORDERED: Succinylcholine 200 MG/10 ML MDV IVPUSH ONE (08:02)
[2023-05-25] MEDS ORDERED: Lidocaine 2% with EPINEPHrine 1:100,000 20 ML MDV INFILT ONE (09:28)
[2023-05-25] MEDS ORDERED: Bupivacaine 0.5% 10 ML SDV INFILT ONE (09:28)
== END 2023-05-25 11:40 | disposition home or self-care (01) ==
LOC: LL.SDS 07:02
PROVIDERS: ATTEND Surgery
DX: K40.90 Unilateral inguinal hernia, without obstruction or gangrene, not specified as recurrent (principal); Z79.899 Other long term (current) drug therapy
CPT/HCPCS: 00830; C1781; J0330; J0690; J1100; J1885; J2250; J2405; J2704; J2710; J3010; J3490; J7120

== ENCOUNTER 2024-07-18 07:49 | Day surgery (SDC) | payer MEDICARE ==
[~2024-07-18 07:49] MED LIST changes: -Lactated Ringers 1,000 ML IV SCH; +Midazolam 1 MG/ML 2 ML SDV ONE; +Propofol 200 MG/20 ML SDV ONE; -Sodium Chloride 0.9% 10 ML Syringe FLUSH PRN
[2024-07-18] MEDS ORDERED: Sodium Chloride 0.9% 10 ML Syringe FLUSH PRN (08:00)
[2024-07-18] MEDS: Lactated Ringers 1,000 ML IV SCH (08:39)
== END 2024-07-18 10:00 | disposition home or self-care (01) ==
LOC: LL.SDS 07:49
PROVIDERS: ATTEND Surgery
DX: Z12.11 Encounter for screening for malignant neoplasm of colon (principal); Z85.038 Personal history of other malignant neoplasm of large intestine; Z86.0101 Personal history of adenomatous and serrated colon polyps; J43.2 Centrilobular emphysema; I50.22 Chronic systolic (congestive) heart failure; E78.2 Mixed hyperlipidemia; N40.0 Benign prostatic hyperplasia without lower urinary tract symptoms; Z79.899 Other long term (current) drug therapy
CPT/HCPCS: 00811; 99100; J2250; J2704; J7120